=== PATIENT | female | born 1990 | race Caucasian/White ===

== ENCOUNTER 2017-03-18 17:50 | Emergency (ER) | payer MEDICAID ==
[~2017-03-18] VITALS: Ht 162.6 cm; Wt 76.7 kg
[~2017-03-18 17:50] MED LIST: APAP/HYDROCODON1 T13 PO; COL100 PO; HUMALOG100 U/ML SC; IBUPROFEN600 MG PO; LEVEMIR100 U/M1 SC; NORCO1 TA2 PO; ZOFRAN8 MG PO
[2017-03-18 18:38] LABS: BASOPHIL % 0.2 % (0-2); PLATELET COUNT 314 x10^3mcL (130-400); RED CELL DISTRIBUTION WIDTH 12.7 % (11.5-14.5)
[2017-03-18 18:49] LABS: CALCIUM 8.9 mg/dL (8.5-10.1); CARBON DIOXIDE 26.1 mmol/L (21-32); CHLORIDE SERUM 103 mmol/L (98-107); CREATININE SERUM 0.5 mg/dL (0.6-1.0); GFR1 > 60 mL/min; GLUCOSE SERUM 270 mg/dL (74-106); SODIUM SERUM 140 mmol/L (136-145)
[2017-03-18 18:53] LABS: ALBUMIN 3.8 g/dL (3.4-5.0); ALKALINE PHOSPHATASE 117 U/L (46-116); ALT/SGPT 16 U/L (14-59); AST/SGOT 9 U/L (15-37); BILIRUBIN TOTAL 0.94 mg/dL (0.20-1.00); TOTAL PROTEIN, SERUM 7.9 g/dL (6.4-8.2)
[2017-03-18 20:03] VITALS: BP 122/68
== END 2017-03-18 20:03 | disposition home or self-care (01) ==
LOC: ED 17:50
PROVIDERS: Emergency Medicine
DX: R07.89 Other chest pain (principal); E11.9 Type 2 diabetes mellitus without complications
CPT/HCPCS: 83880; 85378; J1885

== ENCOUNTER 2017-05-07 13:31 | Emergency (ER) | payer MEDICAID ==
[2017-05-07 14:39] LABS: BASOPHIL % 0.4 % (0-2); PLATELET COUNT 318 x10^3mcL (130-400); RED CELL DISTRIBUTION WIDTH 13.4 % (11.5-14.5)
[2017-05-07 14:58] LABS: CARBON DIOXIDE 25.2 mmol/L (21-32); CHLORIDE SERUM 98 mmol/L (98-107); CREATININE SERUM 0.7 mg/dL (0.6-1.0); GFR1 > 60 mL/min; GLUCOSE SERUM 408 mg/dL (74-106); POTASSIUM SERUM 3.9 mmol/L (3.5-5.1); SODIUM SERUM 133 mmol/L (136-145)
[2017-05-07 15:02] LABS: ALBUMIN 3.7 g/dL (3.4-5.0); ALKALINE PHOSPHATASE 105 U/L (46-116); ALT/SGPT 15 U/L (14-59); AST/SGOT 8 U/L (15-37); BILIRUBIN TOTAL 0.5 mg/dL (0.20-1.00); TOTAL PROTEIN, SERUM 7.7 g/dL (6.4-8.2)
[2017-05-07 17:04] LABS: AMPHETAMINE QUAL UR NONE DETECTED (NEG <=1000)
[2017-05-07 19:27] VITALS: BP 113/76
== END 2017-05-07 19:27 | disposition home or self-care (01) ==
LOC: ED 13:31
PROVIDERS: Emergency Medicine
DX: N93.8 Other specified abnormal uterine and vaginal bleeding (principal); E11.65 Type 2 diabetes mellitus with hyperglycemia; R07.89 Other chest pain
CPT/HCPCS: 82962; 83880; 85378; J1815; J7030

== ENCOUNTER 2017-12-20 05:12 | Emergency (ER) | payer MEDICAID ==
[~2017-12-20] VITALS: Ht 162.6 cm; Wt 72.7 kg
[2017-12-20 05:17] VITALS: Ht 162.6 cm; Wt 72.7 kg
[2017-12-20 06:46] LABS: CALCIUM 8.8 mg/dL (8.5-10.1); CARBON DIOXIDE 24.5 mmol/L (21-32); CHLORIDE SERUM 103 mmol/L (98-107); CREATININE SERUM 0.5 mg/dL (0.6-1.0); GFR1 > 60 mL/min; GLUCOSE SERUM 230 mg/dL (74-106); POTASSIUM SERUM 3.6 mmol/L (3.5-5.1); SODIUM SERUM 139 mmol/L (136-145)
[2017-12-20 06:59] LABS: BASOPHIL % 0.3 % (0-2); PLATELET COUNT 334 x10^3mcL (130-400); RED CELL DISTRIBUTION WIDTH 13.9 % (11.5-14.5)
[2017-12-20 07:16] LABS: UA SPECIFIC GRAVITY 1.025 (1.005-1.035); microscopic required? YES; urine erythrocyte 3+ (NEGATIVE)
[2017-12-20 10:22] VITALS: BP 118/81
== END 2017-12-20 10:22 | disposition home or self-care (01) ==
LOC: ED 05:12
PROVIDERS: Emergency Medicine
DX: O03.9 Complete or unspecified spontaneous abortion without complication (principal)
CPT/HCPCS: J1885; J2270; J2405; J7030

== ENCOUNTER 2017-12-22 18:18 | Inpatient (IN) | payer MEDICAID ==
[~2017-12-22] VITALS: Ht 162.6 cm; Wt 73.9 kg
[2017-12-22 19:29] LABS: BASOPHIL % 0.3 % (0-2); PLATELET COUNT 341 x10^3mcL (130-400); RED CELL DISTRIBUTION WIDTH 14.2 % (11.5-14.5)
[2017-12-22 19:35] LABS: CALCIUM 8.9 mg/dL (8.5-10.1); CARBON DIOXIDE 24.8 mmol/L (21-32); CHLORIDE SERUM 105 mmol/L (98-107); CREATININE SERUM 0.4 mg/dL (0.6-1.0); GFR1 > 60 mL/min; GLUCOSE SERUM 194 mg/dL (74-106); POTASSIUM SERUM 3.6 mmol/L (3.5-5.1); SODIUM SERUM 140 mmol/L (136-145)
[2017-12-22 19:41] LABS: ALBUMIN 3.7 g/dL (3.4-5.0); ALKALINE PHOSPHATASE 81 U/L (46-116); ALT/SGPT 17 U/L (14-59); AST/SGOT 7 U/L (15-37); BILIRUBIN TOTAL 0.66 mg/dL (0.20-1.00); TOTAL PROTEIN, SERUM 7.6 g/dL (6.4-8.2)
[2017-12-22 20:14] LABS: MAGNESIUM 1.9 mg/dL (1.8-2.4); PHOSPHOROUS 3.4 mg/dL (2.5-4.9); T3 TOTAL 0.78 ng/mL
[2017-12-22 20:18] LABS: FREE T4 1.28 ng/dL (0.76-1.46); FREE THYROXINE INDEX 3.4 ug/dL (1.4-4.5); T4(THYROXINE) 9.9 ug/dL (4.7-13.3)
[2017-12-22 20:49] VITALS: BP 124/86
[2017-12-22 20:53] VITALS: BP 124/86
[2017-12-23 05:13] VITALS: BP 111/77
[2017-12-23 06:42] LABS: CALCIUM 8.5 mg/dL (8.5-10.1); CARBON DIOXIDE 24.7 mmol/L (21-32); CHLORIDE SERUM 108 mmol/L (98-107); CREATININE SERUM 0.4 mg/dL (0.6-1.0); GFR1 > 60 mL/min; GLUCOSE SERUM 99 mg/dL (74-106); POTASSIUM SERUM 3.2 mmol/L (3.5-5.1); SODIUM SERUM 143 mmol/L (136-145)
[2017-12-23 06:43] LABS: BASOPHIL % 0.3 % (0-2); PLATELET COUNT 312 x10^3mcL (130-400); RED CELL DISTRIBUTION WIDTH 13.9 % (11.5-14.5)
[2017-12-23 08:26] VITALS: BP 126/80
[2017-12-23 13:00] VITALS: BP 126/80
[2017-12-23 13:14] VITALS: Ht 162.6 cm; Wt 73.9 kg
[2017-12-23 13:58] VITALS: BP 112/75
[2017-12-23 17:30] VITALS: BP 132/89
== END 2017-12-23 18:02 | disposition left against medical advice (07) | DRG 564 ==
LOC: ED 18:18 → DU 19:17
PROVIDERS: Emergency Medicine; Family Medicine
DX: O03.1 Delayed or excessive hemorrhage following incomplete spontaneous abortion (principal); N17.0 Acute kidney failure with tubular necrosis; E11.65 Type 2 diabetes mellitus with hyperglycemia; D72.829 Elevated white blood cell count, unspecified; F43.0 Acute stress reaction; Z53.29 Procedure and treatment not carried out because of patient's decision for other reasons; Z53.21 Procedure and treatment not carried out due to patient leaving prior to being seen by health care provider; E87.6 Hypokalemia; E78.5 Hyperlipidemia, unspecified; E87.8 Other disorders of electrolyte and fluid balance, not elsewhere classified; Z90.49 Acquired absence of other specified parts of digestive tract; Z79.4 Long term (current) use of insulin; Z79.899 Other long term (current) drug therapy
CPT/HCPCS: 82962; 83880; 84439; 90658; J0696; J1815; J3010; J7030; Q0092

== ENCOUNTER 2018-03-19 19:19 | Emergency (ER) | payer MEDICAID ==
[~2018-03-19] VITALS: Ht 167.6 cm; Wt 70.8 kg
[2018-03-19 19:36] VITALS: Ht 167.6 cm; Wt 70.8 kg
[2018-03-19 22:21] LABS: BASOPHIL % 0.3 % (0-2); PLATELET COUNT 374 x10^3mcL (130-400)
[2018-03-19 22:28] LABS: CALCIUM 9.2 mg/dL (8.5-10.1); CHLORIDE SERUM 106 mmol/L (98-107); CREATININE SERUM 0.4 mg/dL (0.6-1.0); GFR1 > 60 mL/min; GLUCOSE SERUM 109 mg/dL (74-106); SODIUM SERUM 144 mmol/L (136-145)
[2018-03-19 22:53] LABS: UA SPECIFIC GRAVITY >=1.030 (1.005-1.035); microscopic required? YES; urine erythrocyte TRACE (NEGATIVE)
[2018-03-20 00:21] VITALS: BP 121/75
== END 2018-03-20 00:21 | disposition home or self-care (01) ==
LOC: ED 19:19
PROVIDERS: Emergency Medicine Emergency Medical Services
DX: R10.9 Unspecified abdominal pain (principal); R11.0 Nausea; E11.9 Type 2 diabetes mellitus without complications; Z90.49 Acquired absence of other specified parts of digestive tract
CPT/HCPCS: 36415

== ENCOUNTER 2018-06-08 12:25 | Emergency (ER) | payer MEDICAID ==
[~2018-06-08] VITALS: Ht 165.1 cm; Wt 71.7 kg
[2018-06-08 12:32] VITALS: Ht 165.1 cm; Wt 71.7 kg
[2018-06-08 15:22] LABS: BASOPHIL % 0.7 % (0-2); PLATELET COUNT 388 x10^3mcL (130-400); RED CELL DISTRIBUTION WIDTH 13.1 % (11.5-14.5)
[2018-06-08 15:40] LABS: microscopic required? YES; urine erythrocyte NEGATIVE (NEGATIVE)
[2018-06-08 15:42] LABS: CALCIUM 9.9 mg/dL (8.5-10.1); CARBON DIOXIDE 26.6 mmol/L (21-32); CHLORIDE SERUM 104 mmol/L (98-107); CREATININE SERUM 0.4 mg/dL (0.6-1.0); GFR1 > 60 mL/min; GLUCOSE SERUM 118 mg/dL (74-106); POTASSIUM SERUM 4.1 mmol/L (3.5-5.1); SODIUM SERUM 138 mmol/L (136-145)
[2018-06-08 15:47] LABS: ALBUMIN 3.8 g/dL (3.4-5.0); ALKALINE PHOSPHATASE 77 U/L (46-116); ALT/SGPT 12 U/L (14-59); AST/SGOT 10 U/L (15-37); CHOLESTEROL 149 mg/dL (<200); CHOLESTEROL/HDL RATIO 3.7; HDL CHOLESTEROL 40 mg/dL (40-60); LIPASE 141 IU/L (73-393); TOTAL PROTEIN, SERUM 8.1 g/dL (6.4-8.2); TRIGLYCERIDES 99 mg/dL (<150)
[2018-06-08 15:49] LABS: FREE T4 1.34 ng/dL (0.76-1.46); FREE THYROXINE INDEX 3.4 ug/dL (1.4-4.5); T4(THYROXINE) 10.2 ug/dL (4.7-13.3)
[2018-06-08 15:56] LABS: T3 TOTAL 1.16 ng/mL
[2018-06-08 19:25] VITALS: BP 130/85
== END 2018-06-08 19:25 | disposition home or self-care (01) ==
LOC: ED 12:25
PROVIDERS: Specialist
DX: R06.02 Shortness of breath (principal); R07.89 Other chest pain; E11.9 Type 2 diabetes mellitus without complications; Z90.49 Acquired absence of other specified parts of digestive tract
CPT/HCPCS: 36600; 82962; 83880; 84439; J7030; Q0092; Q9967

== ENCOUNTER 2018-09-14 13:17 | Emergency (ER) | payer MEDICAID ==
[~2018-09-14] VITALS: Ht 165.1 cm; Wt 71.2 kg
[2018-09-14 13:29] VITALS: Ht 165.1 cm; Wt 71.2 kg
[2018-09-14 16:44] VITALS: BP 105/71
== END 2018-09-14 17:27 | disposition home or self-care (01) ==
LOC: ED 13:17
DX: O99.612 Diseases of the digestive system complicating pregnancy, second trimester (principal); E11.9 Type 2 diabetes mellitus without complications; Z3A.15 15 weeks gestation of pregnancy; Z98.890 Other specified postprocedural states; Z90.49 Acquired absence of other specified parts of digestive tract
CPT/HCPCS: J2405; J7030

== ENCOUNTER 2018-10-01 21:48 | Emergency (ER) | payer MEDICAID ==
[~2018-10-01] VITALS: Ht 165.1 cm; Wt 73.9 kg
[2018-10-01 21:54] VITALS: Ht 165.1 cm; Wt 73.9 kg
[2018-10-01 23:14] LABS: BASOPHIL % 0.6 % (0-2); PLATELET COUNT 353 x10^3mcL (130-400); RED CELL DISTRIBUTION WIDTH 14.2 % (11.5-14.5)
[2018-10-01 23:20] LABS: CALCIUM 8.9 mg/dL (8.5-10.1); CARBON DIOXIDE 24.8 mmol/L (21-32); CHLORIDE SERUM 104 mmol/L (98-107); CREATININE SERUM 0.5 mg/dL (0.6-1.0); GFR1 > 60 mL/min; GLUCOSE SERUM 99 mg/dL (74-106); POTASSIUM SERUM 3.6 mmol/L (3.5-5.1); SODIUM SERUM 137 mmol/L (136-145)
[2018-10-01 23:25] LABS: ALBUMIN 2.8 g/dL (3.4-5.0); ALKALINE PHOSPHATASE 98 U/L (46-116); ALT/SGPT 7 U/L (14-59); AST/SGOT 6 U/L (15-37); BILIRUBIN TOTAL 0.4 mg/dL (0.20-1.00); LIPASE 119 IU/L (73-393); TOTAL PROTEIN, SERUM 7.2 g/dL (6.4-8.2)
[2018-10-01 23:47] LABS: microscopic required? YES; urine erythrocyte NEGATIVE (NEGATIVE)
[2018-10-02 04:26] VITALS: BP 119/73
== END 2018-10-02 04:50 | disposition left against medical advice (07) ==
LOC: ED 21:48
PROVIDERS: Emergency Medicine
DX: O23.42 Unspecified infection of urinary tract in pregnancy, second trimester (principal); Z3A.19 19 weeks gestation of pregnancy; O26.892 Other specified pregnancy related conditions, second trimester; R06.02 Shortness of breath; R07.89 Other chest pain; E11.9 Type 2 diabetes mellitus without complications; Z98.890 Other specified postprocedural states; Z90.49 Acquired absence of other specified parts of digestive tract
CPT/HCPCS: 83880; 85378; J2765; J7030; Q0092

== ENCOUNTER 2019-07-31 16:02 | Emergency (ER) | payer MEDICAID ==
[~2019-07-31] VITALS: Ht 165.1 cm; Wt 75.7 kg
[2019-07-31 16:05] VITALS: Ht 165.1 cm; Wt 75.7 kg
[2019-07-31 17:26] LABS: BASOPHIL % 0.3 % (0-2); PLATELET COUNT 288 x10^3mcL (130-400); RED CELL DISTRIBUTION WIDTH 13.5 % (11.5-14.5)
[2019-07-31 17:39] LABS: CALCIUM 8.3 mg/dL (8.5-10.1); CARBON DIOXIDE 28.2 mmol/L (21-32); CHLORIDE SERUM 99 mmol/L (98-107); CREATININE SERUM 0.5 mg/dL (0.6-1.0); GFR1 > 60 mL/min; GLUCOSE SERUM 353 mg/dL (74-106); POTASSIUM SERUM 4.1 mmol/L (3.5-5.1); SODIUM SERUM 137 mmol/L (136-145)
[2019-07-31 17:44] LABS: ALBUMIN 3.4 g/dL (3.4-5.0); ALKALINE PHOSPHATASE 116 U/L (46-116); ALT/SGPT 33 U/L (14-59); AST/SGOT 24 U/L (15-37); BILIRUBIN TOTAL 0.49 mg/dL (0.20-1.00); TOTAL PROTEIN, SERUM 7.1 g/dL (6.4-8.2)
[2019-07-31 18:41] VITALS: BP 123/74
== END 2019-07-31 18:41 | disposition home or self-care (01) ==
LOC: ED 16:02
PROVIDERS: Emergency Medicine
DX: E11.65 Type 2 diabetes mellitus with hyperglycemia (principal); R03.0 Elevated blood-pressure reading, without diagnosis of hypertension; Z90.49 Acquired absence of other specified parts of digestive tract; Z98.890 Other specified postprocedural states
CPT/HCPCS: 82962

== ENCOUNTER 2020-04-08 22:48 | Emergency (ER) | payer MEDICAID ==
[~2020-04-08] VITALS: Ht 165.1 cm; Wt 70.3 kg
[2020-04-08 23:18] VITALS: Ht 165.1 cm; Wt 70.3 kg
[2020-04-09 00:39] LABS: BASOPHIL % 0.7 % (0-2); PLATELET COUNT 323 x10^3mcL (130-400)
[2020-04-09 00:43] LABS: CALCIUM 9.3 mg/dL (8.5-10.1); CHLORIDE SERUM 99 mmol/L (98-107); CREATININE SERUM 0.7 mg/dL (0.6-1.0); GFR1 > 60 mL/min; GLUCOSE SERUM 384 mg/dL (74-106); SODIUM SERUM 137 mmol/L (136-145)
[2020-04-09 00:47] LABS: ALBUMIN 3.8 g/dL (3.4-5.0); ALKALINE PHOSPHATASE 124 U/L (46-116); ALT/SGPT 19 U/L (14-59); AST/SGOT 11 U/L (15-37); BILIRUBIN TOTAL 0.4 mg/dL (0.20-1.00); LIPASE 168 IU/L (73-393); TOTAL PROTEIN, SERUM 7.9 g/dL (6.4-8.2)
[2020-04-09 01:21] VITALS: BP 131/85
== END 2020-04-09 01:32 | disposition home or self-care (01) ==
LOC: ED 22:48
PROVIDERS: Emergency Medicine
DX: R07.89 Other chest pain (principal); R06.02 Shortness of breath; E11.9 Type 2 diabetes mellitus without complications; Z98.890 Other specified postprocedural states; Z90.49 Acquired absence of other specified parts of digestive tract
CPT/HCPCS: 36415; J1885; Q0092

== ENCOUNTER 2020-05-23 20:38 | Emergency (ER) | payer MEDICAID ==
[~2020-05-23] VITALS: Ht 165.1 cm; Wt 73.5 kg
[2020-05-23 20:48] VITALS: BP 141/88; Ht 165.1 cm; Wt 73.5 kg
[2020-05-23 22:16] LABS: BASOPHIL % 0.3 % (0-2); PLATELET COUNT 329 x10^3mcL (130-400)
[2020-05-23 22:42] LABS: CALCIUM 9.4 mg/dL (8.5-10.1); CARBON DIOXIDE 26.6 mmol/L (21-32); CHLORIDE SERUM 98 mmol/L (98-107); CREATININE SERUM 0.7 mg/dL (0.6-1.0); GFR1 > 60 mL/min; GLUCOSE SERUM 375 mg/dL (74-106); POTASSIUM SERUM 4.1 mmol/L (3.5-5.1); SODIUM SERUM 135 mmol/L (136-145)
[2020-05-23 22:46] LABS: ALKALINE PHOSPHATASE 122 U/L (46-116); ALT/SGPT 20 U/L (14-59); AST/SGOT 12 U/L (15-37); BILIRUBIN TOTAL 0.5 mg/dL (0.20-1.00); LIPASE 155 IU/L (73-393)
[2020-05-23 22:47] LABS: TOTAL PROTEIN, SERUM 8.4 g/dL (6.4-8.2)
== END 2020-05-24 01:32 | disposition left against medical advice (07) ==
LOC: ED 20:38
DX: Z53.21 Procedure and treatment not carried out due to patient leaving prior to being seen by health care provider (principal)

== ENCOUNTER 2020-11-30 19:23 | Emergency (ER) | payer MEDICAID ==
[~2020-11-30] VITALS: Ht 165.1 cm; Wt 74.4 kg
[2020-11-30 19:46] VITALS: Ht 165.1 cm; Wt 74.4 kg
[2020-11-30 20:48] LABS: PLATELET COUNT 311 x10^3mcL (179-408); RED CELL DISTRIBUTION WIDTH 12.9 % (12.3-17.7)
[2020-11-30 21:04] LABS: CALCIUM 9.2 mg/dL (8.5-10.1); CARBON DIOXIDE 25.3 mmol/L (21-32); CHLORIDE SERUM 101 mmol/L (98-107); CREATININE SERUM 0.7 mg/dL (0.6-1.0); GFR1 > 60 mL/min; GLUCOSE SERUM 338 mg/dL (74-106); POTASSIUM SERUM 3.7 mmol/L (3.5-5.1); SODIUM SERUM 136 mmol/L (136-145)
[2020-11-30 21:09] LABS: ALBUMIN 3.8 g/dL (3.4-5.0); ALKALINE PHOSPHATASE 116 U/L (46-116); ALT/SGPT 17 U/L (14-59); AST/SGOT 6 U/L (15-37); BILIRUBIN TOTAL 0.5 mg/dL (0.20-1.00); TOTAL PROTEIN, SERUM 7.6 g/dL (6.4-8.2)
[2020-11-30 22:25] VITALS: BP 126/84
== END 2020-11-30 22:25 | disposition home or self-care (01) ==
LOC: ED 19:23
PROVIDERS: Emergency Medicine
DX: E11.65 Type 2 diabetes mellitus with hyperglycemia (principal); R51.9 Headache, unspecified; Z98.890 Other specified postprocedural states; Z90.49 Acquired absence of other specified parts of digestive tract
CPT/HCPCS: 82962; J1200; J2765